=== PATIENT | male | born 1950 | race Caucasian/White ===

== ENCOUNTER 2023-06-09 08:50 | Emergency (ER) | payer MEDICARE, SELFPAY ==
[2023-06-09 08:54] VITALS: BP 156/69; BMI 29.5
[2023-06-09 09:00] VITALS: BP 156/73
[2023-06-09 09:20] LABS: % Basophils 0.4 % (0-2); % Immature Granulocytes 0.5 % (0-0.5); % Monocytes 5.5 % (1.7-9.3); % Neutrophils 80.6 % (42.2-75.2); Absolute Eosinophils 0.2 10^3/uL (0-0.7); Absolute Immature Granulocytes 0.1 10^3/uL (0-0.05); Absolute Lymphocytes 1.2 10^3/uL (1.2-3.4); Absolute Monocytes 0.6 10^3/uL (0.1-0.6); Absolute Neutrophils 8.9 10^3/uL (1.4-6.5); Hematocrit 38.1 % (39.0-52.0); Hemoglobin 12.8 g/dL (13.0-18.0); Mean Corp Hgb Conc. 33.6 g/dL (33.0-37.0); Mean Corpuscular Hgb 25.6 pg (27.0-31.0); Mean Corpuscular Volume 76.2 fL (80.0-94.0); Nucleated Red Blood Cells % 0 % (-); Platelet Count 269 10^3/uL (130-400); Red Cell Dist. Width 15.7 % (11.5-14.5); White Blood Cell Count 11.1 10^3/uL (4.8-10.8)
--- NOTE | 2023-06-09 09:23 | ED.CVA ---
History of Present Illness
General
Chief Complaint: CVA/TIA Symptoms
Source: patient and spouse
Exam Limitations: none
Time Seen by Provider: 06/09/23 09:05
Nursing documentation reviewed up to this point in time: agreed with
Onset of Stroke Symptoms
Onset of symptoms known: No
Time pt last seen normal is known: No
Travel History
Have you had any contact with someone who has COVID-19?: No
Do you have any symptoms of coronavirus? Fever > 100 degrees, chills, cough, shortness of breath, sore throat, loss of taste or smell, muscle aches, or headache?: Yes
Symptoms:: cough
History of Present Illness
History of Present Illness:
Patient is a 72-year-old male who arrives via ambulance. Patient arrives awake alert he tells me his noted that he was confused this morning. He does admit and remember being confused but does not remember what he was confused on. He does
admit that he felt mild discomfort to left posterior head. He denies any upper or lower extremity weakness denies any difficulty speaking. Denies any chest pain shortness of breath. at bedside reports she went to say goodbye to him this
morning as she was leaving and he was not aware of where he was, he did not know the date, was not able to recall what he did yesterday. He was confused. She reports he was sleeping in the guest room because his bed is broken. She does report
however that this is not new has been sleeping only gas over the past several nights.
She does report however that his speech was clear and he was walking steadily.
Patient does tell me that he remembers waking up at 3 AM to use the bathroom and had a decent meditation because he cannot get back to sleep.
Review of Systems
Review of Systems
Allergies reviewed?: Yes
All Other Systems: ROS reviewed and negative except as documented in HPI and ROS
Constitutional: Reports no symptoms; Denies fever, fatigue or chills
Respiratory: Reports no symptoms
Cardiac: Reports no symptoms
ABD/GI: Reports no symptoms
Musculoskeletal: Reports no symptoms
Skin: Reports no symptoms
Neurological: Reports headache and other (episode of confusion this am )
Phy Exam
General Physical Exam
General Presentation: no apparent distress
General age: appears stated age
General Skin: warm and dry
General Habitus: normal
General Mental: alert
General Hydration: appears well hydrated
Cardiovascular Exam
Cardiovascular Exam: regular rate/rhythm, no murmur and normal peripheral pulses
Pulmonary Exam
Pulmonary Exam: lungs clear and no respiratory distress
Neurological Exam
Neurological Exam: alert, oriented x3, no motor deficits, normal reflexs and speech normal
NIH Stroke Score
Level of Consciousness: 0 - Alert
LOC questions: 0-Answers both correctly
LOC Commands: 0-Performs both correctly
Best Gaze: 0-Normal
Visual Vogt: 0=Normal, no visual loss
Facial palsy: 0=Normal, symmetrical
Motor - Right Arm: 0=No drift 10 seconds
Motor - Left Arm: 0=No drift 10 seconds
Motor - Right Le-No drift 5 seconds
Motor - Left Le-No drift 5 seconds
Limb Ataxia: 0-Absent
Sensation: 0-Normal
Best Language: 0-No aphasia
Dysarthria: 0-Normal
Extinction and Inattention: 0-No abnormality
Total Score:: 0
Lobo Coma Scale
Eye Opening: Spontaneous
Verbal Response: Oriented
Motor Response: Obeys Commands
GCS Total Score: 15
Cerebellar
Cerebellar Function: normal finger to nose
Musculoskeletal Exam
Musculoskeletal Exam: full ROM
Skin Exam
Skin Exam: normal color and warm/dry
Psychiatric Exam
Psychiatric Exam: normal mood/affect
Course
Orders/Labs/Results
Orders:
Orders
06/09/23 09:02
ECG [Electrocardiogram (*1)] Urgent
Reason for Study: TIA/Stroke
CT Head W/o Iv Contrast Urgent
Comment:
Reason For Exam: confusion
06/09/23 09:03
EKG- Treatment ONCE
06/09/23 09:06
Complete Blood Count/With Diff Urgent
Comprehensive Metabolic Panel Urgent
PTT Urgent
Prothrombin Time Urgent
Troponin I Urgent
06/09/23 11:09
Carotid US [US Cerebrovascular] Urgent
Comment:
Reason For Exam: ms changes
Abnormal Lab Results
06/09/23
09:06
WBC 11.1 H 10^3/uL
(4.8-10.8)
Hgb 12.8 L g/dL
(13.0-18.0)
Hct 38.1 L %
(39.0-52.0)
MCV 76.2 L fL
(80.0-94.0)
MCH 25.6 L pg
(27.0-31.0)
RDW 15.7 H %
(11.5-14.5)
Abs Immat Gran (auto) 0.1 H 10^3/uL
(0-0.05)
Absolute Neuts (auto) 8.9 H 10^3/uL
(1.4-6.5)
Neutrophils % 80.6 H %
(42.2-75.2)
Lymphocytes % 11.0 L %
(20.5-51.1)
Glucose 100 H mg/dl
(70-99)
06/09/23 09:06
06/09/23 09:06
Vital Signs
Initial and Last Documented VS:
Initial Vital Signs
Temp Pulse Resp BP Pulse Ox
98.0 F 60 16 156/69 96
06/09/23 08:54 06/09/23 08:54 06/09/23 08:54 06/09/23 08:54 06/09/23 08:54
Last Documented Vital Signs
Temp Pulse Resp BP Pulse Ox
98.0 F 62 16 137/74 96
06/09/23 08:54 06/09/23 13:29 06/09/23 13:29 06/09/23 13:29 06/09/23 13:29
Junior Engineer consulted with Physician
Junior Engineer consulted with physician?: Yes
Name of Physician Consulted: Anastasia
MDM/Problems Addressed
Differential Diagnosis Includes:
not limited to: TIA
MDM/Problems Addressed:
Patient is a 72-year-old male that presented for an episode of confusion. reports pt had episode where he was very confused did not know where he was he could not remember the events of yesterday. He did have a mild left-sided headache with
symptoms. He does recall that he was confused. Symptoms are presently resolved now. Patient has been sleeping in the gas room for the past several nights as his bed is broken. He had no focal deficits. He presents awake alert no acute distress
with an NIH score 0. Patient denies any fevers and is afebrile with a normal white count, unremarkable electrolytes. CT head negative. Patient was evaluated by Dr. Oconnor. Ultrasound carotid obtained shows minimal calcified carotid bulb
plaque on each side measurement suggestive of less than 50% stenosis on each side. pt is well appearing no complaints here. Pt was evaluated by DR Walton who does not feel that this is acute neurologic problem possible sleep deprivation.
Neurologic problem possibly sleep related /lack there of.
Discussed with patient and to follow-up closely with family doctor for further evaluation of symptoms and return if any worsening of symptoms
.
*Radiology
Radiology exam reviewed: radiology read reviewed
*Pulse Oximetry
Patient hypoxic: no
*EKG
Interpreted by ED Provider?: Yes
Heart Rate: 53
Rate: bradycardiac
Rhythm: sinus
Ischemia: no ischemia
*Critical Care Note
Total Time (30-74mins, 75-104mins- exclusive of procedures): Not Applicable
ED Attending Note
-
Portions of this chart may have been created with voice recognition software.� Occasional wrong word or��sound alike� substitutions may have occurred due to the inherent limitations of voice recognition software.
Discharge Plan
Departure
Patient Disposition: Home (Routine Discharge)
Date of Disposition: 06/09/23
Time of Disposition: 13:20
Patient with high blood pressure during this ER visit?: Yes
Condition: Fair
Covid-19: Not Applicable
Discharge Problem:
Altered mental status
Instructions: Altered Mental Status (DC), BLOOD PRESSURE
Prescriptions:
No Action
multivitamin Tablet
1 tab PO NOON
aspirin [Aspir-Low] 81 mg Tablet,Delayed Release (Dr/Ec)
81 mg PO HS
ramipril 5 mg Capsule
5 mg PO DAILY
rosuvastatin 40 mg Tablet
40 mg PO HS
coQ10 (ubiquinol) 100 mg Capsule
100 mg PO NOON
lutein 40 mg Capsule
40 mg PO NOON
magnesium oxide 400 mg magnesium Tablet
400 mg PO NOON
Homocysteine Formula
1 dose PO NOON
omega-3 fatty acids 1,000 mg Capsule
1,000 mg PO NOON
psyllium husk powder
1 tsp PO .SEE BELOW
Patient Comments:
06/09/2023, pt. takes this once a day every day but the times varies on a daily basis.
vitamin D3-vitamin K2
1 tab PO NOON
Patient Comments:
06/09/2023, 10,000 units of D3 and 20 mcg of K2.
Referrals:
Farhan Mendez MD [Active] -
Gabo Awan MD [Family Provider] -
Activity Restrictions/Additional Instructions:
Follow up with neurology as soon as possible as well as PCP.
Return if any worsening of symptoms . continue to take your daily aspirin
Interventions
Interventions:
*Risk Screen - Suicide Last Done: 06/09/23 09:15
*General Assessment Last Done: 06/09/23 09:15
*Neglect/Abuse Screening Last Done: 06/09/23 09:15
ED- Fall Risk Assessment Last Done: 06/09/23 13:29
*ED COVID-19 Vaccine History Last Done: 06/09/23 13:29
*Nursing Disposition Last Done: 06/09/23 13:29
ED- Pulmonary Assessment Last Done: 06/09/23 09:15
ED- Neurological Assessment Last Done: 06/09/23 09:15
ED- Cardiac Assessment Last Done: 06/09/23 09:15
ED Swallowing Screen Last Done: 06/09/23 10:05
Discharge Date and Time
Discharge Date/Time: 06/09/23 13:30
[2023-06-09 09:28] LABS: INR 1.02; PT 13.3 Sec (11.4-14.6)
[2023-06-09 09:30] LABS: APTT 34.3 Sec (23.4-35.0)
[2023-06-09 09:44] LABS: Troponin I < 0.012 ng/ml
[2023-06-09 09:51] LABS: ALT (SGPT) 26 U/L (0-50); AST (SGOT) 34 U/L (17-59); Albumin 3.8 g/dl (3.5-5.0); Alkaline Phosphatase 77 U/L (38-126); Blood Urea Nitrogen 17 mg/dl (9-20); Calcium 8.6 mg/dl (8.4-10.2); Carbon Dioxide 24 mmol/L (22-30); Chloride 107 mmol/L (98-107); Estimated Creatinine Clearance 78 ml/min; Glucose 100 mg/dl (70-99); Potassium 3.9 mmol/L (3.5-5.1); Sodium 136 mmol/L (135-145); Total Bilirubin 0.8 mg/dl (0.2-1.3); eGFR > 60.00
[2023-06-09 10:48] VITALS: BP 122/69
[2023-06-09 11:00] VITALS: BP 138/72
[2023-06-09 13:29] VITALS: BP 137/74
== END 2023-06-09 13:30 | disposition home or self-care (01) ==
LOC: EMR 08:50
PROVIDERS: EMERGENCY PHYSICIAN Emergency Medicine; FAMILY PHYSICIAN Family Medicine
DX: R41.82 Altered mental status, unspecified (principal); R51.9 Headache, unspecified; R03.0 Elevated blood-pressure reading, without diagnosis of hypertension; Z95.2 Presence of prosthetic heart valve; Z85.46 Personal history of malignant neoplasm of prostate; Z88.8 Allergy status to other drugs, medicaments and biological substances
CPT/HCPCS: 99285; 70450; 80053; 84484; 85025; 85610; 85730; 93005; 93880

== ENCOUNTER 2024-09-24 13:30 | Emergency (ER) | payer MEDICARE, SELFPAY ==
[2024-09-24 13:34] VITALS: BP 123/65
[2024-09-24 14:05] LABS: % Basophils 0.2 % (0-2); % Eosinophils 1.1 % (0-6); % Immature Granulocytes 0.2 % (0-0.5); % Lymphocytes 9.9 % (20.5-51.1); % Monocytes 6.5 % (1.7-9.3); % Neutrophils 82.1 % (42.2-75.2); Absolute Eosinophils 0.1 10^3/uL (0-0.7); Absolute Lymphocytes 1.2 10^3/uL (1.2-3.4); Absolute Monocytes 0.8 10^3/uL (0.1-0.6); Absolute Neutrophils 10.2 10^3/uL (1.4-6.5); Hemoglobin 14.2 g/dL (13.0-18.0); Mean Corpuscular Hgb 26.6 pg (27.0-31.0); Mean Corpuscular Volume 80.7 fL (80.0-94.0); Mean Platelet Volume 9.2 fL (7.4-10.4); Nucleated Red Blood Cells % 0 % (-); Platelet Count 308 10^3/uL (130-400); Red Blood Cell Count 5.33 10^6/uL (4.70-6.10); Red Cell Dist. Width 14.7 % (11.5-14.5); White Blood Cell Count 12.4 10^3/uL (4.8-10.8)
[2024-09-24 14:30] LABS: ALT (SGPT) 24 U/L (0-50); AST (SGOT) 25 U/L (17-59); Albumin 4.2 g/dl (3.5-5.0); Alkaline Phosphatase 59 U/L (38-126); Blood Urea Nitrogen 22 mg/dl (9-20); Carbon Dioxide 25 mmol/L (22-30); Chloride 111 mmol/L (98-107); Glucose 125 mg/dl (70-99); Potassium 5.4 mmol/L (3.5-5.1); Sodium 143 mmol/L (135-145); Total Bilirubin 0.6 mg/dl (0.2-1.3); Total Protein 7.1 g/dl (6.3-8.2); eGFR > 60.00
[2024-09-24 15:00] VITALS: BP 123/71
--- NOTE | 2024-09-24 15:14 | ED.GENMED ---
History of Present Illness
General
Chief Complaint: Change in Mental Status
Source: patient and spouse
Exam Limitations: none
Time Seen by Provider: 09/24/24 14:59
History of Present Illness
History of Present Illness:
See MDM
Past History
Past History
ED Past Medical History: Cancer (Prostate), HTN and Other (Migraines)
ED Past Surgical History: Cardiac
Social History
Tobacco: Non-smoker
Alcohol: None
Phy Exam
Physical Exam
Physical Exam:
See MDM
Scores
NIH Stroke Score
Level of Consciousness: 0 - Alert
LOC Questions: 0-Answers both correctly
LOC Commands: 0-Performs both correctly
Best Horizontal Gaze: 0-Normal
Visual Vogt: 0=Normal, no visual loss
Facial Palsy: 0=Normal, symmetrical
Motor - Right Arm: 0=No drift 10 seconds
Motor - Left Arm: 0=No drift 10 seconds
Motor - Right Le-No drift 5 seconds
Motor - Left Le-No drift 5 seconds
Limb Ataxia: 0-Absent
Sensation: 0-Normal
Best Language: 0-No aphasia
Dysarthria: 0-Normal
Extinction and Inattention: 0-No abnormality
NIH Total Score:: 0
Course
Orders/Labs/Results
Orders:
Orders
09/24/24 13:39
CT Head W/o Iv Contrast Urgent
Comment:
Reason For Exam: forgetfull period
09/24/24 13:55
Complete Blood Count/With Diff Urgent
Comprehensive Metabolic Panel Urgent
09/24/24 15:13
Sodium Zirconium Cyclosilicate [Lokelma] 5 gram PO NOW STA
Abnormal Lab Results
09/24/24
13:55
WBC 12.4 H 10^3/uL
(4.8-10.8)
MCH 26.6 L pg
(27.0-31.0)
RDW 14.7 H %
(11.5-14.5)
Absolute Neuts (auto) 10.2 H 10^3/uL
(1.4-6.5)
Absolute Monos (auto) 0.8 H 10^3/uL
(0.1-0.6)
Neutrophils % 82.1 H %
(42.2-75.2)
Lymphocytes % 9.9 L %
(20.5-51.1)
Potassium 5.4 H mmol/L
(3.5-5.1)
Chloride 111 H mmol/L
(98-107)
BUN 22 H mg/dl
(9-20)
Glucose 125 H mg/dl
(70-99)
09/24/24 13:55
09/24/24 13:55
Vital Signs
Initial and Last Documented VS:
Initial Vital Signs
Temp Pulse Resp BP Pulse Ox
98.0 F 74 20 123/65 98
09/24/24 13:34 09/24/24 13:34 09/24/24 13:34 09/24/24 13:34 09/24/24 13:34
Last Documented Vital Signs
Temp Pulse Resp BP Pulse Ox
98.0 F 64 20 123/71 94
09/24/24 13:34 09/24/24 15:19 09/24/24 13:34 09/24/24 15:00 09/24/24 15:19
MDM/Problems Addressed
Differential Diagnosis Includes:
HPI and MDM Narrative:
74-year-old male presenting for an episode of memory loss. Patient was out to breakfast with and friends. During the patient had this sensation that he felt 'off' and that he 'was not present'. states that he did seem distant and seemed
odd. She states that he had no strokelike symptoms. Throughout the day, symptoms did start to improve. started do some research that he had an episode of transient global amnesia. Upon further questioning, patient is under immense stress at
work. On my exam, his NIH stroke scale 0. We did discuss the likelihood of transient global amnesia
Blood work was done prior to my assessment. Patient has mild leukocytosis. He has mild hyperkalemia as well. states he has not been drinking as much. For CT scan. We did have a long discussion about whether or not to admit him for MRI for
further workup
Physical exam
General: Well appearing and non-toxic
HEENT: protecting airway. EOMI
Neck: appears supple
CV: No evidence of cyanosis. Regular rate and rhythm
Resp: No accessory muscle use
Abd: Non-distended
Extremities: No deformities
Neuro: alert. No focal
Psych: Normal affect
Skin: Intact
Problems Addressed including Acute and Chronic Conditions affecting care:
1. Transient global amnesia
Acuity: acute
Prognosis: stable
Details: Will obtain CT head. Currently back to baseline
2. Hyperkalemia
Acuity: acute
Prognosis: stable
Details: Potential in the setting of mild dehydration. Will give small dose of Lokelma
Updates
CT head negative. We had a further discussion whether to admit or discharge. Patient states he would like to be discharged. He does understand that we discussed admission for MRI but he feels comfortable talking his primary care
Differential Diagnosis (but not limited to): Transient global amnesia, TIA
Testing considered: UDS but he is not clinically intoxicated
Drug therapy (if applicable): OTC meds, please see d/c instruction regarding Rx drugs
Amount and/or Complexity of Data Reviewed
Clinical info obtained from: Patient. states she believes he had an episode like this before. She states he is under immense stress at work
External data reviewed: N/A
Labs I independently reviewed (but not limited to): Mild hyperkalemia
Radiology: The CT scan was personally and independently reviewed. In addition, official CT report reviewed.
Pulse Ox: not hypoxic
EKG independently reviewed: N/A
Hat Former: N/A
Critical Care: N/A
Risk of Complication:
Social Determinants of health: Good social support
Discussed with other providers: N/A
Escalation of Care includes Admit/Obs: After being observed in the Emergency Department, pt stable for discharge.
Occasional wrong word or 'sound a like' substitutions may have occurred due to the inherent limitations of voice recognition software. Read the chart carefully and recognize, using context, where substitutions have occurred.
*Critical Care Note
Total Time (30-74mins, 75-104mins- exclusive of procedures): Not Applicable
ED Attending Note
-
Portions of this chart may have been created with voice recognition software.� Occasional wrong word or��sound alike� substitutions may have occurred due to the inherent limitations of voice recognition software.
Discharge Plan
Departure
Patient Disposition: Home (Routine Discharge)
Date of Disposition: 09/24/24
Time of Disposition: 16:16
Patient with high blood pressure during this ER visit?: No
Discharge Problem:
Transient global amnesia
Prescriptions:
No Action
multivitamin Tablet
1 tab PO NOON
aspirin [Aspir-Low] 81 mg Tablet,Delayed Release (Dr/Ec)
81 mg PO HS
ramipril 5 mg Capsule
5 mg PO DAILY
rosuvastatin 40 mg Tablet
40 mg PO HS
coQ10 (ubiquinol) 100 mg Capsule
100 mg PO NOON
lutein 40 mg Capsule
40 mg PO NOON
magnesium oxide 400 mg magnesium Tablet
400 mg PO NOON
Homocysteine Formula
1 dose PO NOON
omega-3 fatty acids 1,000 mg Capsule
1,000 mg PO NOON
psyllium husk powder
1 tsp PO .SEE BELOW
Patient Comments:
06/09/2023, pt. takes this once a day every day but the times varies on a daily basis.
vitamin D3-vitamin K2
1 tab PO NOON
Patient Comments:
06/09/2023, 10,000 units of D3 and 20 mcg of K2.
Referrals:
Gabo Awan MD [Family Provider, [facility]]
Activity Restrictions/Additional Instructions:
Please return for any worsening symptoms.
You may return at any time if you have further concerns.
Please follow up with your doctor at the first available appointment, preferably this week.
Thank you for choosing [facility].
Interventions
Interventions:
*General Assessment Last Done: 09/24/24 13:34
*Neglect/Abuse Screening Last Done: 09/24/24 15:20
*ED- Fall Risk Assessment Last Done: 09/24/24 15:19
*ED COVID-19 Vaccine History Last Done: 09/24/24 15:19
Discharge Date and Time
Print Language: GABONESE
[2024-09-24 15:19] VITALS: BMI 29.1
[2024-09-24] MEDS: LOKELMA 5 GRAM PO (15:31)
== END 2024-09-24 16:30 | disposition home or self-care (01) ==
LOC: EMR 13:30
PROVIDERS: Emergency Medicine; EMERGENCY PHYSICIAN Student in an Organized Health Care Education/Training Program; FAMILY PHYSICIAN Family Medicine
DX: G45.4 Transient global amnesia (principal); Z56.6 Other physical and mental strain related to work; E87.5 Hyperkalemia; D72.829 Elevated white blood cell count, unspecified; I10 Essential (primary) hypertension; G43.909 Migraine, unspecified, not intractable, without status migrainosus; Z85.46 Personal history of malignant neoplasm of prostate; Z88.8 Allergy status to other drugs, medicaments and biological substances
CPT/HCPCS: 99284; 70450; 80053; 85025

== ENCOUNTER 2025-02-28 06:34 | Day surgery (SDC) | payer MEDICARE, SELFPAY | END 2025-02-28 11:32 | disposition home or self-care (01) | LOC: GI 06:34 | PROVIDERS: ATTENDING PHYSICIAN Specialist | DX: Z12.11 Encounter for screening for malignant neoplasm of colon (principal); K62.5 Hemorrhage of anus and rectum; Z86.0101 Personal history of adenomatous and serrated colon polyps; R19.7 Diarrhea, unspecified; K31.7 Polyp of stomach and duodenum; K31.819 Angiodysplasia of stomach and duodenum without bleeding; E85.4 Organ-limited amyloidosis | CPT/HCPCS: 43239; G0105; 88305; 88313 ==